=== PATIENT | female | born 1940 | race Caucasian/White ===

== ENCOUNTER → 2017-10-23 | Outpatient (CLI) | payer OTHER, MEDICARE ==
[~2017-10-23] MED LIST: ADULT LOW DOSE81 MG PO; ALPRAZOLAM 0.0.25 M1 PO; LIPITOR20 MG PO; LISINOPRIL10 MG PO; LISINOPRIL20 MG PO; LOPRESSOR 50 MG50 M1 PO; LOPRESSOR25 PO; NEURONTIN 300300 M1 PO; NORVASC 5 MG TAB5 MG PO; PRAVASTATIN SOD20 MG PO; SYNTHROID75 MCG; SYNTHROID88 MCG PO; TOPROL XL50 MG PO; TUMS PO; VITAMIN D35000 UNI1 PO; VITAMIN E400 UNIT PO
== END ==
LOC: CAT 13:34
DX: K57.30 Diverticulosis of large intestine without perforation or abscess without bleeding (principal); I25.10 Atherosclerotic heart disease of native coronary artery without angina pectoris; R91.1 Solitary pulmonary nodule; M41.86 Other forms of scoliosis, lumbar region; M47.816 Spondylosis without myelopathy or radiculopathy, lumbar region; I10 Essential (primary) hypertension; E03.9 Hypothyroidism, unspecified; E78.5 Hyperlipidemia, unspecified; E66.01 Morbid (severe) obesity due to excess calories

== ENCOUNTER 2020-04-10 18:21 | Emergency (ER) | payer OTHER, MEDICARE ==
[~2020-04-10] VITALS: Ht 170.2 cm; Wt 90.7 kg
[2020-04-10 19:35] LABS: ABSOLUTE NEUTROPHILS 3.9 thou/uL (1.4-8.2); BASOPHILS 0.4 % (0.0-2.0); EOSINOPHILS 3.1 % (0.0-3.0); HEMATOCRIT 39.9 % (37.0-47.0); HEMOGLOBIN 13.4 gm/dL (12.0-15.0); LYMPHOCYTES 32.1 % (24.0-44.0); MCH 31.3 pg (26.0-34.0); MCHC 33.7 g/dL (28.0-37.0); MCV 92.8 fL (80.0-100.0); MONOCYTES 11.4 % (1.0-8.0); PLATELET COUNT 225 thou/uL (150-400); RDW 13.8 % (10.5-14.5); WBC 7.4 thou/uL (4.0-11.0)
[2020-04-10 19:57] LABS: ANION GAP 9 mmol/L (7-16); BUN 15 mg/dL (7-18); CALCIUM 9.2 mg/dL (8.5-10.1); CHLORIDE 103 mmol/L (98-107); CO2 27 mmol/L (21-32); CREATININE 0.9 mg/dL (0.6-1.0); GLUCOSE 181 mg/dL (74-106); POTASSIUM 3.9 mmol/L (3.5-5.1); SODIUM 139 mmol/L (136-145)
[2020-04-10 20:08] LABS: ALBUMIN 3.4 g/dL (3.4-5.0); LIPASE 137 U/L (73-393); SGOT 16 U/L (15-37); SGPT 27 U/L (14-59); TOTAL BILIRUBIN 0.3 mg/dL (0.2-1.0); TOTAL PROTEIN 7.3 g/dL (6.4-8.2); TROPONIN-I <0.06 ng/mL (<0.06)
[2020-04-10] MEDS ORDERED: OMEPRAZOLE 20 M20 M1 PO (20:15)
[2020-04-10] MEDS ORDERED: ASA81BEC PO (20:16)
[2020-04-10] MEDS ORDERED: GLIMEPIRIDE1 MG PO (20:16)
[2020-04-10] MEDS ORDERED: SIMVASTATIN80 MG PO (20:18)
[2020-04-10 20:26] VITALS: BP 169/62
--- NOTE | 2020-04-11 07:36 | EKG ---
[place] [address] [facility] [place] [address] ELECTROCARDIOGRAM REPORT Name: GABRIELLA GOLDBERG Room #: [facility]P [facility]onz[facility] [id number] Admission: 04/10/20 Attend Phys: Discharge: 04/10/20 Date of : 38 Report #: [id number] [facility] ED Test Date: 2020-04-10 Test Time: 18:26:48 Pat Name: GABRIELLA GOLDBERG Department: Room: Gender: F Plumbing Manager: EVA : 1940 Requested By: Jese Olmstead Order Number: [id number] MD: Janes Trevino Measurements Intervals [place] Rate: 72 P: 61 AR: 192 QRS: 43 QRSD: 101 T: 66 QT: 420 QTc: 460 Interpretive Statements Sinus rhythm Baseline wander in lead(s) III,aVF,V1,V4 Compared to ECG 06/10/2011 21:43:56 No significant changes Electronically Signed On 04-11-2020 7:35:47 PAPER REWINDER by Janes Trevino [email or web address] <ELECTRONICALLY SIGNED> By: Janes Trevino MD, [facility] 04/11/20 0735 1826 25 Janes Trevino MD, FAC /EPI
== END 2020-04-10 20:33 | disposition home or self-care (01) ==
LOC: ER 18:21
PROVIDERS: Emergency Medicine
DX: R07.89 Other chest pain (principal); R06.02 Shortness of breath; R42 Dizziness and giddiness; M54.2 Cervicalgia; I10 Essential (primary) hypertension; E78.00 Pure hypercholesterolemia, unspecified; E03.9 Hypothyroidism, unspecified; F32.9 Major depressive disorder, single episode, unspecified; F41.9 Anxiety disorder, unspecified; Z90.711 Acquired absence of uterus with remaining cervical stump; Z90.49 Acquired absence of other specified parts of digestive tract; Z96.651 Presence of right artificial knee joint; K21.9 Gastro-esophageal reflux disease without esophagitis; Z79.899 Other long term (current) drug therapy; Z79.82 Long term (current) use of aspirin; Z88.8 Allergy status to other drugs, medicaments and biological substances

== ENCOUNTER → 2020-04-18 | Outpatient (CLI) | payer OTHER, MEDICARE ==
[~2020-04-18] MED LIST changes: +ASA81BEC PO; +GLIMEPIRIDE1 MG PO; +OMEPRAZOLE 20 M20 M1 PO; +SIMVASTATIN80 MG PO
== END ==
LOC: SJCVCIMAG 07:41
PROVIDERS: ATTEND Internal Medicine
DX: I08.8 Other rheumatic multiple valve diseases (principal); I11.9 Hypertensive heart disease without heart failure; R00.0 Tachycardia, unspecified; E78.5 Hyperlipidemia, unspecified; I49.3 Ventricular premature depolarization; E66.9 Obesity, unspecified; Z79.899 Other long term (current) drug therapy

== ENCOUNTER → 2021-05-07 | Outpatient (CLI) | payer OTHER, MEDICARE | LOC: SJCVC 13:39 | PROVIDERS: ATTEND Internal Medicine | DX: I25.10 Atherosclerotic heart disease of native coronary artery without angina pectoris (principal); R06.00 Dyspnea, unspecified; E78.5 Hyperlipidemia, unspecified; I10 Essential (primary) hypertension; F41.9 Anxiety disorder, unspecified; F32.9 Major depressive disorder, single episode, unspecified; K21.9 Gastro-esophageal reflux disease without esophagitis; E78.00 Pure hypercholesterolemia, unspecified; E03.9 Hypothyroidism, unspecified; Z86.16 Personal history of COVID-19; Z79.82 Long term (current) use of aspirin; Z79.899 Other long term (current) drug therapy; Z82.49 Family history of ischemic heart disease and other diseases of the circulatory system; Z88.8 Allergy status to other drugs, medicaments and biological substances ==